=== PATIENT | male | born 1970 | race Caucasian/White ===

== ENCOUNTER → 2016-06-13 | Outpatient (REF) | payer OTHER ==
[2016-06-15 14:31] LABS: Lyme Disease IgG/IgM Antibodie <0.91 ISR (0.00-0.90); Lyme Disease IgM Ab Quantitati <0.80 index (0.00-0.79)
== END ==
LOC: M LAB REF 16:22
PROVIDERS: ATTEND Nurse Practitioner Family
DX: M79.1 Myalgia (principal)

== ENCOUNTER → 2017-08-22 | Outpatient (REF) | payer OTHER ==
[2017-08-22 12:52] LABS: IRON (FE) 154 UG/DL (65-175); TOTAL IRON BINDING CAPACITY 321 UG/DL (250-450)
== END ==
LOC: M LAB REF 12:24
DX: E83.119 Hemochromatosis, unspecified (principal)

== ENCOUNTER → 2018-12-14 | Outpatient (CLI) | payer OTHER ==
--- NOTE | 2018-12-14 12:19 | REP ---
LEFT FOOT SERIES: Four views. HISTORY: Pain. FINDINGS: Four views left foot demonstrate a mild hallux valgus. There is osteoarthritic spurring at the 1st MTP joint mild in degree. There is old post-traumatic deformity of the distal tuft of the great toe. No acute fracture is seen. There is Achilles and plantar calcaneal spurring. No erosive change is seen. IMPRESSION: No acute bony abnormality. Chronic changes. Electronically Signed by Hunter Griggs MD 12/14/2018 12:41 P
--- NOTE | 2018-12-14 12:20 | REP ---
LEFT KNEE SERIES: Five views. HISTORY: Pain. FINDINGS: Five views of the left knee demonstrate nonarticular spurring of the superior and inferior pole patella at the quadriceps and patellar tendon insertions respectively. Bones, joints, and soft tissues are otherwise unremarkable. IMPRESSION: Nonarticular spurring of the patella. No acute bony abnormality. Electronically Signed by Hunter Griggs MD 12/14/2018 12:41 P
[2018-12-14 13:06] LABS: ALBUMIN 3.7 GM/DL (3.2-5.2); BLOOD UREA NITROGEN 17 MG/DL (7-18); CALCIUM LEVEL 8.6 MG/DL (8.5-10.1); CARBON DIOXIDE LEVEL 30 MEQ/L (21-32); CHLORIDE LEVEL 105 MEQ/L (98-107); CREATININE FOR GFR 1.01 MG/DL (0.70-1.30); GLOMERULAR FILTRATION RATE > 60.0 (>56); GLUCOSE, FASTING 139 MG/DL (70-100); PHOSPHORUS LEVEL 2.9 MG/DL (2.5-4.9); POTASSIUM SERUM 4.2 MEQ/L (3.5-5.1); SODIUM LEVEL 142 MEQ/L (136-145); URIC ACID 7.5 MG/DL (3.5-7.2)
== END ==
LOC: M WUC 09:43
PROVIDERS: ATTEND Physician Assistant
DX: M76.892 Other specified enthesopathies of left lower limb, excluding foot (principal); M79.672 Pain in left foot

== ENCOUNTER → 2019-01-04 | Outpatient (REF) | payer OTHER ==
[2019-01-04 18:03] LABS: PERCENT SATURATION 48.1 % (19.7-50.0); URIC ACID 9.1 MG/DL (3.5-7.2)
== END ==
LOC: M LAB REF 17:11
PROVIDERS: ATTEND Nurse Practitioner Family
DX: M10.9 Gout, unspecified (principal); E83.119 Hemochromatosis, unspecified

== ENCOUNTER → 2020-02-25 | Outpatient (REF) | payer OTHER ==
[~2020-02-25] MED LIST: ALLO100T PO; AMLO1TAB24 PO; BREO1INH PO; FLON1SPR NARES; HYDR12.55 PO; RAMI1CAP26 PO
[2020-02-25 16:56] LABS: PERCENT SATURATION 38.1 % (19.7-50.0)
== END ==
LOC: M LAB REF 16:26
PROVIDERS: ATTEND Registered Nurse
DX: E83.119 Hemochromatosis, unspecified (principal)

== ENCOUNTER → 2021-03-11 | Outpatient (REF) | payer OTHER | LOC: M LAB REF 12:16 | PROVIDERS: ATTEND Registered Nurse | DX: M10.9 Gout, unspecified (principal) ==

== ENCOUNTER → 2022-04-19 | Outpatient (REF) | payer OTHER | LOC: M LAB REF 16:49 | PROVIDERS: ATTEND Registered Nurse | DX: M10.9 Gout, unspecified (principal) ==

== ENCOUNTER → 2022-09-17 | Outpatient (CLI) | payer OTHER | LOC: M RAD 08:07 | PROVIDERS: ATTEND Nurse Practitioner | DX: E83.119 Hemochromatosis, unspecified (principal) ==

== ENCOUNTER → 2023-11-23 | Outpatient (REF) | payer OTHER ==
[~2023-11-23] MED LIST changes: +RAMI10CA64 PO; -RAMI1CAP26 PO
[2023-11-23 14:23] LABS: PERCENT SATURATION 33.6 % (19.7-50.0)
== END ==
LOC: M LAB REF 13:07
PROVIDERS: ATTEND Physician Assistant Medical
DX: E83.110 Hereditary hemochromatosis (principal)